=== PATIENT | female | born 1965 | race Caucasian/White ===

== ENCOUNTER 2020-12-15 22:31 | Emergency (ER) | payer BC ==
[~2020-12-15] VITALS: Ht 165.1 cm; Wt 59.0 kg
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
--- NOTE | 2020-12-15 23:10 | NUR ---
BELEM from [place] at bedside.
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
[2020-12-15] MEDS ORDERED: TDAP DIPH,PERTUSS,TET VAC/PF 0.5 ML DISP.SYRIN IM ONE ×2 (23:45→23:49)
[2020-12-16] MEDS ORDERED: LORAZEPAM 2 MG/1 ML VIAL IM ONE
[2020-12-16] MEDS ORDERED: LORAZEPAM 2 MG/1 ML VIAL ONE (00:02)
--- NOTE | 2020-12-16 00:05 | NUR ---
[employer] unit 46E45 Watch#3 at bedside taking report from patient.
--- NOTE | 2020-12-16 00:29 | NUR ---
Note nima in EDM - 12/16/20 at 0041 by ELENITA Patient discharged to home in stable condition. Written and verbal after care instructions given. Patient verbalizes understanding of instructions. Stressed follow up or return to ER for worsening s/s. No c/o pain or discomfort. Steady gait.
--- NOTE | 2020-12-16 00:29 | NUR ---
Attemped to provide patient with discharge care instructions but patient and family left room. Patient not noted to be in the bathroom or hallway, no where to be found. Patient was accompanied by sister the entire time. Patient did not recieve any narcotics, no IV site was placed. Patient did not sign discharge instructions. Patient was last noted to be A/O x4, stable condition, no c/o pain or discomfort.
[2020-12-16 00:48] VITALS: BP 159/90
== END 2020-12-16 00:30 | disposition left against medical advice (07) ==
LOC: ER 22:35
DX: S00.83XA Contusion of other part of head, initial encounter (principal); S01.512A Laceration without foreign body of oral cavity, initial encounter; Y04.0XXA Assault by unarmed brawl or fight, initial encounter; S81.851A Open bite, right lower leg, initial encounter; Y04.1XXA Assault by human bite, initial encounter; Y92.019 Unspecified place in single-family (private) house as the place of occurrence of the external cause
CPT/HCPCS: 90471; 90715; 99283; J2060; A4663